=== PATIENT | female | born 1970 | race African-American/Black ===

== ENCOUNTER 2016-07-28 05:11 | Day surgery (SDC) | payer OTHER ==
[2016-07-23 14:01] VITALS: BMI 30.1
[2016-07-28] MEDS ORDERED: IBUPROFEN 800 MG/8 ML IJ IVPB PRN (06:39)
[2016-07-28] MEDS ORDERED: MIDAZOLAM HCL 2 MG/2 ML SINGLE DOSE VIAL ONE (10:41)
[2016-07-28] MEDS ORDERED: PROPOFOL 20 ML ONE (10:41)
[2016-07-28] MEDS ORDERED: ROCURONIUM BROMIDE 50 MG/5 ML VIAL ONE (10:41)
[2016-07-28] MEDS ORDERED: DESFLURANE GAS 240 ML BOTTLE IH ONE (10:46)
[2016-07-28] MEDS ORDERED: ceFAZolin SODIUM 1 GM VIAL ONE (11:15)
[2016-07-28] MEDS ORDERED: ceFAZolin SODIUM 1 GM VIAL IVPB ONE ×2 (11:18)
[2016-07-28] MEDS ORDERED: KETOROLAC TROMETHAMINE 30 MG/1 ML VIAL ONE (12:24)
[2016-07-28] MEDS ORDERED: ACETAMINOPHEN 325 MG TABLET (FP) PO PRN (12:46)
[2016-07-28] MEDS ORDERED: oxyCODONE HCL 5 MG TABLET PO PRN (12:46)
[2016-07-28] MEDS ORDERED: ONDANSETRON 4 MG/2 ML VIAL IVPUSH PRN (12:46)
[2016-07-28] MEDS ORDERED: LACTATED RINGERS SOLUTION 1,000 ML IV SCH (13:00)
--- NOTE | 2016-07-28 13:11 | HP ---
History & Physical Update - History History: No Change - Physical Physical: No Change - Assessment Assessment: No Change - Plan Plan: No Change
--- NOTE | 2016-07-28 13:17 | OP ---
[id number]. Ovarian Cyst Operation: Laparoscopic myomectomy. Laparoscopic Left salpingectomy. Lysis of adhesions Post-Operative Diagnosis: Same as Pre-op (Peduculated myoma Left hydrosalpinx adhesive disease) Surgeon: Lilly Pena Drainage Inspector: Haylee Monge Anesthesia: General Operative Report Dictated: Yes
[2016-07-28 15:26] VITALS: TEMP 98.4
[2016-07-28 16:03] VITALS: BP 123/75; PULSE 65
--- NOTE | 2016-07-29 13:59 | PATH ---
Surgical Pathology Report Patient Name: EFRA SORIANO Med. Rec. #: [id number] /Age/Gender: 1970 (Age: 45) / F Account: [id number] Location: [facility] SURGICAL Taken: 07/28/2016 Received: 07/28/2016 Reported: 07/29/2016 Physicians: Lilly Pena M.D. Specimen(s) Received A: LEFT FALLOPIAN TUBE B: RIGHT FIBROID Clinical History Pedunculated fibroid Hydrosalpinx Final Diagnosis A. FALLOPIAN TUBE, LEFT, SALPINGECTOMY: BENIGN FALLOPIAN TUBE WITH HYDROSALPINX. B. 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 Electronically Signed Jg Beverly M.D. Gross Description A. Received in formalin, labeled "left fallopian tube" is a 9 cm in length portion of fallopian tube. No fimbria are identified. The outer surface is oro-pink with a focal defect. Sectioning reveals a focally dilated lumen. Pinion Sorter sections are submitted in one cassette. B. Received in formalin, labeled "right fibroid" is a 4 g, 2.6 x 2.0 x 1.7 cm nodule, consistent with a fibroid. The outer surface is oro-pink and smooth. Sectioning reveals oro, firm to rubbery parenchyma with whorled architecture. No areas of hemorrhage or necrosis are identified. Pinion Sorter sections are submitted in 3 cassettes. DL/07/28/2016 saudi07/28/2016
--- NOTE | 2016-09-15 10:42 | OP ---
DATE OF OPERATION: 07/28/2016 OPERATION: 1. Laparoscopic myomectomy. 2. Laparoscopic left salpingectomy. 3. Lysis of adhesions. PREOPERATIVE DIAGNOSIS: 1. Hydrosalpinx. 2. Ovarian cyst. POSTOPERATIVE DIAGNOSIS: 1. Left hydrosalpinx. 2. Ovarian cyst. 3. Pedunculated myoma. 4. Adhesive disease. SURGEON: Lilly Pena MD SWEDISH MASSEUSE: Haylee Alejandro DO ANESTHESIA: General. PROCEDURE: Patient was taken to the operating room, placed in the dorsal lithotomy position and prepped and draped in the usual sterile fashion. A Blue catheter was inserted into the bladder. Attention was then drawn to the umbilicus where a 5-mm umbilical incision was made. A Veress needle was inserted into the cavity. Approximately 3-4 liters of CO2 was insufflated in the cavity. The Veress needle was then removed, and a 5-mm trocar was inserted. Laparoscope and camera attached. Visualization reviewed pedunculated myoma and left hydrosalpinx. Two other trocars were placed on the left and right side under direct visualization after scalpel had made a 5-mm incision. The left tube was grasped, and ligature was then used to perform a left salpingectomy. Left tube was removed, and a pedunculated myoma was seen. Tenaculum was then used to grasp the myoma. Endoshears were then used to removed the myoma from the uterine cavity. Cauterization of the fundus of the uterus was then performed. Myoma was then removed through one of the ports and submitted to pathology. Hemostasis was achieved. Numerous adhesions were seen in the endometrial cavity, and lysis of adhesions was then performed. Omental adhesion was taken down. The right tube was noted to be normal, and ovary also normal. Hemostasis was achieved. Estimated blood loss 30 mL. All instruments were removed, and incision was then closed using 4-0 Biosyn in a subcuticular fashion. Wound was washed and dressed. Patient tolerated the procedure well and was taken to the recovery room in stable condition. LILLY PENA M.D. [id number]
== END 2016-07-28 16:03 | disposition home or self-care (01) ==
LOC: JASU-SURG 05:11
PROVIDERS: ATTEND Obstetrics & Gynecology
PROC: 0UN94ZZ Release Uterus, Percutaneous Endoscopic Approach (ICD-10-PCS; 2016-07-28)
PROC: 0UB64ZZ Excision of Left Fallopian Tube, Percutaneous Endoscopic Approach (ICD-10-PCS; principal; 2016-07-28 11:00)
PROC: 0UB94ZZ Excision of Uterus, Percutaneous Endoscopic Approach (ICD-10-PCS; 2016-07-28 11:00)
DX: N70.11 Chronic salpingitis (principal); N83.202 Unspecified ovarian cyst, left side; D25.0 Submucous leiomyoma of uterus; N73.6 Female pelvic peritoneal adhesions (postinfective)
CPT/HCPCS: 84703; 88305-TC; 94760